=== PATIENT | female | born 1960 | race Caucasian/White ===

== ENCOUNTER 2018-11-13 17:54 | Emergency (ER) | payer OTHER ==
[~2018-11-13] VITALS: Ht 160 cm; Wt 80.7 kg
[~2018-11-13 17:54] MED LIST: ASPIRIN81 M1 PO; DURAGESIC50 MCG/HR TD; HYDROCODONE BIT1 T11 PO; KETOROLAC10 MG PO; LIDODERM 5% PATC1 EA PO; LOVASTATIN20 MG PO; MOTRIN800 MG PO; NEURONTIN600 MG PO; VICODIN 5/500 505 MG PO; ZITHROMAX Z PA250 MG PO
[2018-11-13] MEDS ORDERED: DELTASONE20 M1 PO (19:07)
[2018-11-13] MEDS ORDERED: ZITHROMAX250 MG PO (19:07)
== END 2018-11-13 19:30 | disposition home or self-care (01) ==
LOC: ED 17:54
DX: J40 Bronchitis, not specified as acute or chronic (principal); J44.9 Chronic obstructive pulmonary disease, unspecified; F17.200 Nicotine dependence, unspecified, uncomplicated

== ENCOUNTER 2020-12-02 16:31 | Emergency (ER) | payer MEDICAID ==
[~2020-12-02] VITALS: Wt 68.0 kg
[~2020-12-02 16:31] MED LIST changes: +DELTASONE20 M1 PO; +ZITHROMAX250 MG PO
== END 2020-12-02 20:00 | disposition home or self-care (01) ==
LOC: ED 16:31
DX: H53.9 Unspecified visual disturbance (principal); Z79.899 Other long term (current) drug therapy